=== PATIENT | male | born 1960 | race Caucasian/White ===

== ENCOUNTER 2017-10-10 00:57 | Emergency (ER) | payer BC ==
--- NOTE | 2017-10-10 01:37 | ED ---
Complex/Multi-Sys Presentation - HPI Summary HPI Summary: Pt is 57 y/o M presenting s/p fall after his friend called EMS. Pt reports he was walking, tripped and fell, hitting the left side of his forehead. Negative LOC and the fall was witnessed by his friend. Denies any nausea and reports that he feels well. Confirms EtOH tonight. Tetanus up to date. - History Of Current Complaint Chief Complaint: EDTraumaMultiple Time Seen by Provider: 10/10/17 01:21 Hx Obtained From: Patient Onset/Duration: Sudden Onset, Lasting Hours, Still Present Timing: Constant Severity Currently: None Location: Pain At: - NEGATIVE Aggravating Factor(s): Nothing Alleviating Factor(s): Nothing Associated Signs And Symptoms: Negative: Nausea - Allergies/Home Medications Allergies/Adverse Reactions: Allergies Allergy/AdvReac Type Severity Reaction Status Date / Time No Known Allergies Allergy Verified 01/27/15 09:13 PMH/Surg Hx/FS Hx/Imm Hx Endocrine/Hematology History: Denies: Hx Diabetes Cardiovascular History: Denies: Hx Congestive Heart Failure, Hx Hypertension Respiratory History: Reports: Hx Asthma - when a child, Hx Seasonal Allergies - when a child, Other Respiratory Problems/Disorders - IN LAST MONTH & HALF HAD PN. WAS ON ABX Sensory History: Reports: Hx Contacts or Glasses Opthamlomology History: Reports: Hx Contacts or Glasses Psychiatric History: Reports: Hx Anxiety - Surgical History Surgery Procedure, Year, and Place: tonsillectomy Infectious Disease History: No Infectious Disease History: Denies: Traveled Outside the [place] in Last 30 Days - Family History Known Family History: Positive: Cardiac Disease - Social History Occupation: Employed Full-time Lives: Dormitory/Roommates - friend Alcohol Use: Rare Substance Use Type: Reports: None Hx Tobacco Use: No Smoking Status (MU): Never Smoked Tobacco Review of Systems Negative: Fever Negative: Nausea Neurological: Other - NEGATIVE: LOC All Other Systems Reviewed And Are Negative: Yes Physical Exam - Summary Physical Exam Summary: VITAL SIGNS: Reviewed. GENERAL: Patient is a well-developed and nourished male who is lying comfortable in the stretcher. Patient is not in any acute respiratory distress. Alcohol on breath. HEAD AND FACE: No signs of trauma. No ecchymosis, hematomas or skull depressions. No sinus tenderness. EYES: PERRLA, EOMI x 2, No injected conjunctiva, no nystagmus. EARS: Hearing grossly intact. Ear canals and tympanic membranes are within normal limits. MOUTH: Oropharynx within normal limits. NECK: Supple, trachea is midline, no adenopathy, no JVD, no carotid bruit, no c- spine tenderness, neck with full ROM. CHEST: Symmetric, no tenderness at palpation LUNGS: Clear to auscultation bilaterally. No wheezing or crackles. CVS: Regular rate and rhythm, S1 and S2 present, no murmurs or gallops appreciated. ABDOMEN: Soft, non-tender. No signs of distention. No rebound no guarding, and no masses palpated. Bowel sounds are normal. EXTREMITIES: FROM in all major joints, no edema, no cyanosis or clubbing. NEURO: Alert and oriented x 3. No acute neurological deficits. Speech is slow. Gait not tested. SKIN: Dry and warm. Abrasion on L forehead and elbow. Road rash on L knee. Triage Information Reviewed: Yes Vital Signs On Initial Exam: Initial Vitals Temp Pulse Resp BP Pulse Ox 97.6 F 92 16 126/83 95 10/10/17 01:01 10/10/17 01:01 10/10/17 01:01 10/10/17 01:01 10/10/17 01:01 Vital Signs Reviewed: Yes Diagnostics - Vital Signs Vital Signs Temp Pulse Resp BP Pulse Ox 10/10/17 01:01 97.6 F 92 16 126/83 95 - Laboratory Lab Statement: Any lab studies that have been ordered have been reviewed, and results considered in the medical decision making process. Complex Multi-Symp Course/Dx Assessment/Plan: Pt is 57 y/o M presenting s/p fall during which he tripped and fell, hitting the left side of his forehead. Negative LOC and the fall was witnessed by his friend. Denies any nausea and reports that he feels well. Confirms EtOH tonight. Tetanus up to date. Pt will be discharged with follow up from Dr. Alvarado. Pt is agreeable with the plan. - Diagnoses Provider Diagnoses: Alcohol intoxication, Abrasion Discharge - Sign-Out/Discharge Documenting (check all that apply): Patient Departure - D/C - Discharge Plan Condition: Stable Disposition: HOME Patient Education Materials: Alcohol Intoxication (ED), Abrasion (ED) Referrals: Christiano Cardoza MD [Primary Care Provider] - 2 Days Additional Instructions: Please return to emergency department for changing or worsening symptoms.
[2017-10-10 02:47] VITALS: BP 122/79
== END 2017-10-10 02:45 | disposition home or self-care (01) ==
LOC: ED 00:57
DX: S00.81XA Abrasion of other part of head, initial encounter (principal); W01.0XXA Fall on same level from slipping, tripping and stumbling without subsequent striking against object, initial encounter; Y92.9 Unspecified place or not applicable; F10.129 Alcohol abuse with intoxication, unspecified
CPT/HCPCS: 99282